=== PATIENT | male | born 1935 | race Asian ===

== ENCOUNTER 2016-10-31 17:20 | Inpatient (IN) | payer OTHER ==
[~2016-10-31] VITALS: Ht 165.1 cm; Wt 69.7 kg
[2016-10-31 17:31] LABS: BASOPHILS % (AUTO) 0.3 % (0.0-2.0); EOSINOPHILS % (AUTO) 1.2 % (1.0-6.0); HEMATOCRIT 31.3 % (41-53); LYMPHOCYTES # (AUTO) 2.4 K/uL (1.0-4.8); LYMPHOCYTES % (AUTO) 22.5 % (22.0-44.0); MEAN CORPUSCULAR HEMOGLOBIN 27.7 pg (26.0-34.0); MEAN CORPUSCULAR HGB CONC 31.8 G/dL (31.0-37.0); MEAN CORPUSCULAR VOLUME 87 fL (80-100); MONOCYTES # (AUTO) 0.6 K/uL (0.1-1.0); MONOCYTES % (AUTO) 6.1 % (2.0-9.0); NEUTROPHILS # (AUTO) 7.3 K/uL (1.8-7.7); NEUTROPHILS % (AUTO) 69.9 % (40.0-70.0); PLATELET COUNT (AUTO) 261 K/uL (150-450); RED BLOOD CELL COUNT(AUTO) 3.59 MIL/uL (4.50-5.90); RED CELL DISTRIBUTION WIDTH 13.4 % (11.5-14.5); WHITE BLOOD COUNT (AUTO) 10.5 K/uL (4.5-11.0)
[2016-10-31] MEDS ORDERED: METF500T4 PO (17:40)
[2016-10-31 17:42] LABS: INR 0.9 (0.9-1.1); PROTHROMBIN TIME 9.9 SEC (9.4-11.6)
[2016-10-31 17:47] LABS: ANION GAP 12 mmol/L (8-16); CARBON DIOXIDE 22 mmol/L (22-29); CHLORIDE 92 mmol/L (98-107); CREATININE 2.08 mg/dL (0.60-1.30); GLOMERULAR FILTR. RATE CALC 31 mL/min (>60); POTASSIUM 4.6 mmol/L (3.5-5.1); SODIUM SERUM 126 mmol/L (136-145); UREA NITROGEN, BLOOD 21 mg/dL (7-18)
[2016-10-31] MEDS ORDERED: LISI-661 PO (17:53)
[2016-10-31] MEDS ORDERED: SITA50 PO (17:53)
[2016-10-31] MEDS ORDERED: AMLO2.5T PO (17:53)
[2016-10-31] MEDS ORDERED: FINA5TAB41 PO (17:53)
[2016-10-31] MEDS ORDERED: ASPI-1093 PO (17:53)
[2016-10-31] MEDS ORDERED: LEVO50TA4 PO (17:53)
[2016-10-31] MEDS ORDERED: METO50 PO (17:53)
[2016-10-31] MEDS ORDERED: CHL25 PO (17:53)
[2016-10-31] MEDS ORDERED: ALLO100T PO (17:53)
[2016-10-31] MEDS ORDERED: ATOR20TA86 PO (17:53)
[2016-10-31] MEDS ORDERED: PREG75 PO (17:53)
[2016-10-31 17:54] LABS: ALANINE AMINOTRANSFERASE 43 U/L (12-78); ALBUMIN 2.9 g/dL (3.4-5.0); ASPARTATE AMINOTRANSFERASE 42 U/L (15-37); BILIRUBIN,TOTAL 0.3 mg/dL (0.1-1.0); CREATINE KINASE, TOTAL 55 U/L (39-308); TOTAL PROTEIN, SERUM 6.9 g/dL (6.4-8.2)
[2016-10-31] MEDS ORDERED: SODIUM CHLORIDE 0.9% 500 ML IV ONE ×2 (18:00→18:45)
[2016-10-31 19:02] LABS: ERYTHROCYTE SEDIMENTATION RATE 94 MM/HR (0-15)
[2016-10-31 19:05] LABS: THYROID STIMULATING HORMONE 0.36 uIU/mL (0.36-3.74)
[2016-10-31] MEDS ORDERED: DEXTROSE 50%-WATER 25 GM/50 ML SYRINGE IVP PRN (19:30)
[2016-10-31] MEDS ORDERED: 0.9% SODIUM CHLORIDE 10 ML SYRINGE IVP PRN (19:30)
[2016-10-31] MEDS ORDERED: ONDANSETRON HCL 4 MG/2 ML VIAL IVP PRN (19:30)
[2016-10-31] MEDS ORDERED: ACETAMINOPHEN 325 MG TABLET PO PRN (19:30)
[2016-10-31] MEDS ORDERED: INSULIN ASPART 100 UNITS/ML SQ PRN (19:30)
[2016-10-31 20:29] VITALS: BP 112/65
[2016-10-31 23:15] VITALS: BP 109/53
[2016-11-01 04:36] VITALS: BP 101/55
[2016-11-01] MEDS ORDERED: DEXTROSE 50%-WATER 25 GM/50 ML SYRINGE IVP PRN (06:15)
[2016-11-01 06:29] LABS: BASOPHILS % (AUTO) 0.3 % (0.0-2.0); EOSINOPHILS % (AUTO) 1.8 % (1.0-6.0); HEMATOCRIT 28.5 % (41-53); HEMOGLOBIN 9.2 g/dL (13.5-17.5); LYMPHOCYTES # (AUTO) 1.7 K/uL (1.0-4.8); LYMPHOCYTES % (AUTO) 28.4 % (22.0-44.0); MEAN CORPUSCULAR HEMOGLOBIN 27.9 pg (26.0-34.0); MEAN CORPUSCULAR HGB CONC 32.1 G/dL (31.0-37.0); MEAN CORPUSCULAR VOLUME 87 fL (80-100); MONOCYTES # (AUTO) 0.7 K/uL (0.1-1.0); MONOCYTES % (AUTO) 10.8 % (2.0-9.0); NEUTROPHILS # (AUTO) 3.5 K/uL (1.8-7.7); NEUTROPHILS % (AUTO) 58.7 % (40.0-70.0); PLATELET COUNT (AUTO) 223 K/uL (150-450); RED BLOOD CELL COUNT(AUTO) 3.28 MIL/uL (4.50-5.90); RED CELL DISTRIBUTION WIDTH 13.6 % (11.5-14.5)
[2016-11-01] MEDS: INSULIN ASPART 100 UNITS/ML SQ PRN ×3 (06:34→17:30)
[2016-11-01 07:04] LABS: ALBUMIN 2.5 g/dL (3.4-5.0); BILIRUBIN,TOTAL 0.2 mg/dL (0.1-1.0); CALCIUM, TOTAL 8.6 mg/dL (8.8-10.5); CHOL/HDL RATIO 3.2 (4.2-7.3); CREATININE 1.91 mg/dL (0.60-1.30); MAGNESIUM 1.5 mg/dL (1.80-2.40); PHOSPHORUS 3.1 mg/dL (2.5-4.9); TOTAL PROTEIN, SERUM 6.3 g/dL (6.4-8.2)
[2016-11-01 07:10] LABS: HEMOGLOBIN A1C 13.3 % (4.5-6.2)
[2016-11-01 08:02] LABS: APPEARANCE,URINE CLEAR (CLEAR); GLUCOSE, URINE (UA) NEGATIVE (NEGATIVE); KETONES,URINE NEGATIVE (NEGATIVE); LEUKOCYTE ESTERASE ,URINE NEGATIVE (NEGATIVE); OCCULT BLOOD,URINE NEGATIVE (NEGATIVE); PH,URINE 6.5 (5.0-8.0); PROTEIN,URINE NEGATIVE (NEGATIVE)
[2016-11-01 08:10] LABS: ADD UA MICROSCOPIC NO
[2016-11-01 08:13] VITALS: BP 116/58
[2016-11-01] MEDS: AmLODIPine BESYLATE 2.5 MG TABLET PO SCH (08:21)
[2016-11-01] MEDS: ALLOPURINOL 100 MG TABLET PO SCH (08:21)
[2016-11-01] MEDS: METOPROLOL TARTRATE 50 MG TABLET PO SCH (08:21)
[2016-11-01] MEDS: ASPIRIN 81 MG EC TABLET PO SCH (08:22)
[2016-11-01] MEDS: LEVOTHYROXINE SODIUM 50 MCG TABLET PO SCH (08:22)
[2016-11-01] MEDS: FINASTERIDE 5 MG TABLET PO SCH (08:22)
[2016-11-01] MEDS: PREGABALIN 75 MG CAPSULE PO SCH (08:22)
[2016-11-01] MEDS ORDERED: MAGNESIUM SULFATE 1 GM in DEXTROSE 5%-WATER 50 ML IV ONE (10:00)
[2016-11-01] MEDS ORDERED: SODIUM CHLORIDE 0.9% 250 ML IV ONE (10:21)
[2016-11-01 11:38] VITALS: BP 116/67
[2016-11-01 15:45] VITALS: BP 119/63
[2016-11-01] MEDS: INSULIN ASPART 100 UNITS/ML SQ SCH (17:30)
[2016-11-01 19:43] VITALS: BP 100/60
[2016-11-01] MEDS: ATORVASTATIN CALCIUM 20 MG TABLET PO SCH (20:23)
[2016-11-01] MEDS: INSULIN DETEMIR 100 UNITS/ML SQ SCH (20:27)
[2016-11-01] MEDS: PHENYLEPHRINE/PROMETH/CODEINE 5 ML ORAL.SYG PO PRN (22:01)
[2016-11-01 23:56] VITALS: BP 116/61
[2016-11-02 04:43] VITALS: BP 113/81
[2016-11-02] MEDS: PHENYLEPHRINE/PROMETH/CODEINE 5 ML ORAL.SYG PO PRN ×3 (05:38→20:24)
[2016-11-02] MEDS: INSULIN ASPART 100 UNITS/ML SQ SCH ×3 (06:47→17:54)
[2016-11-02] MEDS: INSULIN ASPART 100 UNITS/ML SQ PRN ×3 (06:47→20:32)
[2016-11-02 07:08] LABS: BASOPHILS % (AUTO) 0.2 % (0.0-2.0); EOSINOPHILS % (AUTO) 1.5 % (1.0-6.0); HEMATOCRIT 31.6 % (41-53); LYMPHOCYTES # (AUTO) 2.6 K/uL (1.0-4.8); LYMPHOCYTES % (AUTO) 35.2 % (22.0-44.0); MEAN CORPUSCULAR HEMOGLOBIN 27.9 pg (26.0-34.0); MEAN CORPUSCULAR HGB CONC 31.8 G/dL (31.0-37.0); MEAN CORPUSCULAR VOLUME 88 fL (80-100); MONOCYTES # (AUTO) 0.6 K/uL (0.1-1.0); MONOCYTES % (AUTO) 7.7 % (2.0-9.0); NEUTROPHILS # (AUTO) 4.1 K/uL (1.8-7.7); NEUTROPHILS % (AUTO) 55.4 % (40.0-70.0); PLATELET COUNT (AUTO) 260 K/uL (150-450); RED CELL DISTRIBUTION WIDTH 13.9 % (11.5-14.5); WHITE BLOOD COUNT (AUTO) 7.5 K/uL (4.5-11.0)
[2016-11-02 07:47] VITALS: BP 106/55
[2016-11-02 08:04] LABS: CALCIUM, TOTAL 8.8 mg/dL (8.8-10.5); CREATININE 1.69 mg/dL (0.60-1.30); MAGNESIUM 1.6 mg/dL (1.80-2.40)
[2016-11-02] MEDS: PANTOPRAZOLE SODIUM 40 MG DR TABLET PO SCH (08:25)
[2016-11-02] MEDS: METOPROLOL TARTRATE 50 MG TABLET PO SCH (08:25)
[2016-11-02] MEDS: ASPIRIN 81 MG EC TABLET PO SCH (08:25)
[2016-11-02] MEDS: AmLODIPine BESYLATE 2.5 MG TABLET PO SCH (08:25)
[2016-11-02] MEDS: PREGABALIN 75 MG CAPSULE PO SCH (08:25)
[2016-11-02] MEDS: LEVOTHYROXINE SODIUM 50 MCG TABLET PO SCH (08:25)
[2016-11-02] MEDS: FINASTERIDE 5 MG TABLET PO SCH (08:25)
[2016-11-02] MEDS: ALLOPURINOL 100 MG TABLET PO SCH (08:25)
[2016-11-02 08:27] LABS: GLUCOSE COMMENT 1 Received Meds; GLUCOSE,POINT OF CARE 173 MG/DL (70-110)
[2016-11-02 08:56] LABS: GLUCOSE COMMENT 1 Received Meds; GLUCOSE,POINT OF CARE 137 MG/DL (70-110)
[2016-11-02 10:46] VITALS: BP 94/63
[2016-11-02] MEDS ORDERED: MAGNESIUM SULFATE 3 GM in DEXTROSE 5%-WATER 100 ML IV ONE (12:30)
[2016-11-02 15:05] VITALS: BP 99/50
[2016-11-02 19:37] VITALS: BP 97/58
[2016-11-02] MEDS: ATORVASTATIN CALCIUM 20 MG TABLET PO SCH (20:24)
[2016-11-02] MEDS: INSULIN DETEMIR 100 UNITS/ML SQ SCH (20:32)
[2016-11-02 23:47] VITALS: BP 94/58
[2016-11-03 04:16] VITALS: BP 105/53
[2016-11-03] MEDS: PHENYLEPHRINE/PROMETH/CODEINE 5 ML ORAL.SYG PO PRN (06:12)
[2016-11-03] MEDS: INSULIN ASPART 100 UNITS/ML SQ PRN ×2 (06:17→11:31)
[2016-11-03] MEDS: INSULIN ASPART 100 UNITS/ML SQ SCH ×2 (06:17→11:30)
[2016-11-03] MEDS ORDERED: LEVOTHYROXINE SODIUM 50 MCG TABLET PO SCH (06:30)
[2016-11-03 06:44] LABS: BASOPHILS % (AUTO) 0.3 % (0.0-2.0); EOSINOPHILS % (AUTO) 1.4 % (1.0-6.0); HEMATOCRIT 30.3 % (41-53); HEMOGLOBIN 9.7 g/dL (13.5-17.5); LYMPHOCYTES # (AUTO) 2.3 K/uL (1.0-4.8); MEAN CORPUSCULAR HEMOGLOBIN 28.1 pg (26.0-34.0); MEAN CORPUSCULAR HGB CONC 31.9 G/dL (31.0-37.0); MEAN CORPUSCULAR VOLUME 88 fL (80-100); MONOCYTES # (AUTO) 0.5 K/uL (0.1-1.0); MONOCYTES % (AUTO) 6.9 % (2.0-9.0); NEUTROPHILS # (AUTO) 4.4 K/uL (1.8-7.7); NEUTROPHILS % (AUTO) 60.4 % (40.0-70.0); PLATELET COUNT (AUTO) 255 K/uL (150-450); RED BLOOD CELL COUNT(AUTO) 3.44 MIL/uL (4.50-5.90); WHITE BLOOD COUNT (AUTO) 7.3 K/uL (4.5-11.0)
[2016-11-03 07:02] LABS: CALCIUM, TOTAL 8.6 mg/dL (8.8-10.5); CREATININE 1.7 mg/dL (0.60-1.30)
[2016-11-03 07:29] VITALS: BP 107/54
[2016-11-03] MEDS: PANTOPRAZOLE SODIUM 40 MG DR TABLET PO SCH (08:43)
[2016-11-03] MEDS: ALLOPURINOL 100 MG TABLET PO SCH (08:43)
[2016-11-03] MEDS: PREGABALIN 75 MG CAPSULE PO SCH (08:43)
[2016-11-03] MEDS: ASPIRIN 81 MG EC TABLET PO SCH (08:43)
[2016-11-03] MEDS: FINASTERIDE 5 MG TABLET PO SCH (08:43)
[2016-11-03] MEDS: METOPROLOL TARTRATE 50 MG TABLET PO SCH (08:43)
[2016-11-03] MEDS: AmLODIPine BESYLATE 2.5 MG TABLET PO SCH (08:45)
[2016-11-03 11:31] VITALS: BP 104/57
[2016-11-03] MEDS ORDERED: INSU100V12 SQ (14:10)
[2016-11-03] MEDS ORDERED: INSNOV SQ (14:12)
[2016-11-04 13:37] LABS: GLUCOSE COMMENT 1 Received Meds; GLUCOSE,POINT OF CARE 216 MG/DL (70-110)
[2016-11-04 13:37] LABS: GLUCOSE COMMENT 1 Received Meds; GLUCOSE,POINT OF CARE 180 MG/DL (70-110)
[2016-11-04 13:37] LABS: GLUCOSE COMMENT 1 Received Meds; GLUCOSE,POINT OF CARE 144 MG/DL (70-110)
[2016-11-04 13:37] LABS: GLUCOSE COMMENT 1 Received Meds; GLUCOSE,POINT OF CARE 170 MG/DL (70-110)
[2016-11-04 13:38] LABS: GLUCOSE COMMENT 1 Received Meds; GLUCOSE,POINT OF CARE 183 MG/DL (70-110)
[2016-11-04 13:38] LABS: GLUCOSE COMMENT 1 Received Meds; GLUCOSE,POINT OF CARE 188 MG/DL (70-110)
[2016-11-04 13:38] LABS: GLUCOSE,POINT OF CARE 130 MG/DL (70-110)
[2016-11-04 13:38] LABS: GLUCOSE COMMENT 1 Received Meds; GLUCOSE,POINT OF CARE 258 MG/DL (70-110)
[2016-11-04 13:42] LABS: GLUCOSE COMMENT 1 Received Meds; GLUCOSE,POINT OF CARE 170 MG/DL (70-110)
== END 2016-11-03 14:45 | disposition home or self-care (01) | DRG 682 ==
LOC: EMS 17:24 → 5N 18:32 → EEVIPCON 18:32
PROVIDERS: ADMIT Family Medicine; ATTEND Family Medicine
DX: N17.0 Acute kidney failure with tubular necrosis (principal); G93.41 Metabolic encephalopathy; E87.1 Hypo-osmolality and hyponatremia; C90.00 Multiple myeloma not having achieved remission; E11.22 Type 2 diabetes mellitus with diabetic chronic kidney disease; N18.9 Chronic kidney disease, unspecified; I12.9 Hypertensive chronic kidney disease with stage 1 through stage 4 chronic kidney disease, or unspecified chronic kidney disease; E03.9 Hypothyroidism, unspecified; E11.65 Type 2 diabetes mellitus with hyperglycemia; E11.21 Type 2 diabetes mellitus with diabetic nephropathy; Z86.73 Personal history of transient ischemic attack (TIA), and cerebral infarction without residual deficits; Z79.4 Long term (current) use of insulin; Z79.82 Long term (current) use of aspirin; Z79.899 Other long term (current) drug therapy
CPT/HCPCS: 76770; 82533; 82570; 82962; 83036; 83735; 83935; 84100; 84300; 84443; 85651; 87081; 92523; 93005; 93306; 93880; 96360; 97161; 97167; 97530; 99291; J1815; J2370; J3475; J7040; J7050; J7060

== ENCOUNTER → 2017-02-14 | Outpatient (CLI) | payer OTHER ==
[~2017-02-14] MED LIST: ALLO100T PO; AMLO2.5T PO; ASPI-1093 PO; ATOR20TA86 PO; CHL25 PO; FINA5TAB41 PO; INSNOV SQ; INSU100V12 SQ; LEVO50TA4 PO; METO50 PO; PREG75 PO; SITA50 PO
== END | disposition home or self-care (01) ==
LOC: RADPV 12:55
PROVIDERS: ATTEND Internal Medicine Nephrology
DX: M79.89 Other specified soft tissue disorders (principal)
CPT/HCPCS: 93970

== ENCOUNTER 2019-07-06 19:50 | Inpatient (IN) | payer MEDICARE, OTHER ==
[~2019-07-06] VITALS: Ht 165.1 cm; Wt 69.8 kg
[~2019-07-06 19:50] MED LIST changes: -AMLO2.5T PO; +AMLO2.5T4 PO; -ASPI-1093 PO; +ASPI-1111 PO; +FINA-27 PO; -FINA5TAB41 PO
[2019-07-07 01:22] LABS: GLUCOSE,POINT OF CARE 144 MG/DL (70-110)
[2019-07-07] MEDS ORDERED: SODIUM CHLORIDE 0.9% 500 ML IV ONE (01:45)
[2019-07-07] MEDS ORDERED: ALBUTEROL SULFATE 2.5 MG/0.5 ML NEB SOLUTION NEB ONE ×2 (01:45→06:30)
[2019-07-07] MEDS ORDERED: 0.9% SODIUM CHLORIDE 5 ML NEB SOLUTION NEB ONE (02:05)
[2019-07-07 02:19] LABS: BASOPHILS % (AUTO) 0.3 % (0.0-2.0); EOSINOPHILS % (AUTO) 0.5 % (1.0-6.0); HEMOGLOBIN 10.5 g/dL (13.5-17.5); LYMPHOCYTES # (AUTO) 1.4 K/uL (1.0-4.8); LYMPHOCYTES % (AUTO) 30.9 % (22.0-44.0); MEAN CORPUSCULAR HEMOGLOBIN 30.7 pg (26.0-34.0); MEAN CORPUSCULAR VOLUME 93 fL (80-100); MONOCYTES # (AUTO) 0.5 K/uL (0.1-1.0); MONOCYTES % (AUTO) 11.7 % (2.0-9.0); NEUTROPHILS # (AUTO) 2.6 K/uL (1.8-7.7); NEUTROPHILS % (AUTO) 56.6 % (40.0-70.0); PLATELET COUNT (AUTO) 61 K/uL (150-450); RED BLOOD CELL COUNT(AUTO) 3.44 MIL/uL (4.50-5.90); RED CELL DISTRIBUTION WIDTH 18.5 % (11.5-14.5)
[2019-07-07 02:37] LABS: PLATELET MORPHOLOGY COMMENT LARGE PLTS PRESENT
[2019-07-07 02:40] LABS: ALBUMIN 2.9 g/dL (3.4-5.0); BILIRUBIN,TOTAL 0.4 mg/dL (0.1-1.0); CALCIUM, TOTAL 8.8 mg/dL (8.8-10.5); POTASSIUM 3.9 mmol/L (3.5-5.1); TOTAL PROTEIN, SERUM 7.9 g/dL (6.4-8.2)
[2019-07-07 03:11] LABS: INFLUENZA TYPE A NEGATIVE FOR TYPE A (NEGATIVE); INFLUENZA TYPE B NEGATIVE FOR TYPE B (NEGATIVE)
[2019-07-07 03:33] LABS: APPEARANCE,URINE CLEAR (CLEAR); BILIRUBIN,URINE NEGATIVE (NEGATIVE); GLUCOSE, URINE (UA) 250 mg/dL (NEGATIVE); KETONES,URINE NEGATIVE (NEGATIVE); LEUKOCYTE ESTERASE ,URINE NEGATIVE (NEGATIVE); NITRATE,URINE NEGATIVE (NEGATIVE); OCCULT BLOOD,URINE NEGATIVE (NEGATIVE); PH,URINE 5.5 (5.0-8.0); PROTEIN,URINE POS 1+ (NEGATIVE); UROBILINOGEN,URINE 0.2 mg/dL (<=1.0)
[2019-07-07 03:44] LABS: BACTERIA,URINE Rare /HPF (None Seen); RBC,URINE 0-2 /HPF (0-2); WBC,URINE 0-2 /HPF (0-5)
[2019-07-07 03:45] LABS: COARSE GRANULAR CASTS,URINE 0-2 /LPF (None Seen)
[2019-07-07] MEDS ORDERED: CefTRIAXone 1 GM/DEXTROSE 50 ML IV ONE (04:00)
[2019-07-07] MEDS ORDERED: PredniSONE 20 MG TABLET PO ONE (04:00)
[2019-07-07] MEDS ORDERED: AZITHROMYCIN 250 MG TABLET PO ONE (04:00)
[2019-07-07] MEDS ORDERED: 0.9% SODIUM CHLORIDE 10 ML SYRINGE IVP PRN (04:15)
[2019-07-07] MEDS ORDERED: ACETAMINOPHEN 325 MG TABLET PO PRN ×2 (04:15→08:15)
[2019-07-07] MEDS ORDERED: DEXTROSE 50%-WATER 25 GM/50 ML SYRINGE IVP PRN (08:15)
[2019-07-07] MEDS ORDERED: SODIUM CHLORIDE 0.45% 1,000 ML IV ONE (08:30)
[2019-07-07] MEDS: FAMOTIDINE 20 MG TABLET PO SCH (08:39)
[2019-07-07] MEDS: METOPROLOL TARTRATE 25 MG TABLET PO SCH ×2 (08:39→20:59)
[2019-07-07] MEDS: ASPIRIN 81 MG CHEWABLE TABLET PO SCH (08:39)
[2019-07-07] MEDS: DOCUSATE SODIUM 100 MG CAPSULE PO SCH ×2 (08:42→20:59)
[2019-07-07] MEDS: INSULIN LISPRO 100 UNITS/ML SQ PRN ×4 (08:48→21:07)
[2019-07-07 08:57] LABS: GLUCOSE,POINT OF CARE 301 MG/DL (70-110)
[2019-07-07] MEDS ORDERED: PREGABALIN 75 MG CAPSULE PO SCH (09:00)
[2019-07-07] MEDS: ATORVASTATIN CALCIUM 20 MG TABLET PO SCH (09:04)
[2019-07-07 12:05] LABS: GLUCOSE,POINT OF CARE 250 MG/DL (70-110)
[2019-07-07] MEDS: HEPARIN SODIUM,PORCINE 5,000 UNITS/ML VIAL SQ SCH ×2 (15:29→23:43)
[2019-07-07] MEDS ORDERED: FURO20 PO (16:09)
[2019-07-07 16:25] VITALS: BP 147/77
[2019-07-07 18:05] LABS: GLUCOMETER DEV NAME(LOC) 5S.1; GLUCOSE,POINT OF CARE 216 MG/DL (70-110)
[2019-07-07 19:54] VITALS: BP 140/70
[2019-07-07] MEDS: PREGABALIN 75 MG CAPSULE PO SCH (22:20)
[2019-07-07 23:50] LABS: GLUCOMETER DEV NAME(LOC) 5N.2; GLUCOSE,POINT OF CARE 217 MG/DL (70-110)
[2019-07-08 00:30] VITALS: BP 129/79
[2019-07-08] MEDS: CefTRIAXone 1 GM/DEXTROSE 50 ML IV SCH (03:41)
[2019-07-08] MEDS: AZITHROMYCIN 500 MG/NS 250 ML IV SCH (04:16)
[2019-07-08 04:39] VITALS: BP 116/58
[2019-07-08 07:06] LABS: GLUCOMETER DEV NAME(LOC) 5N.1; GLUCOSE,POINT OF CARE 118 MG/DL (70-110)
[2019-07-08 07:08] LABS: CALCIUM, TOTAL 8.5 mg/dL (8.8-10.5); CREATININE 1.77 mg/dL (0.60-1.30); POTASSIUM 3.8 mmol/L (3.5-5.1)
[2019-07-08 07:26] VITALS: BP 118/66
[2019-07-08] MEDS: HEPARIN SODIUM,PORCINE 5,000 UNITS/ML VIAL SQ SCH (08:00)
[2019-07-08] MEDS: FAMOTIDINE 20 MG TABLET PO SCH (08:51)
[2019-07-08] MEDS: METOPROLOL TARTRATE 25 MG TABLET PO SCH ×2 (08:51→20:39)
[2019-07-08] MEDS: PREGABALIN 75 MG CAPSULE PO SCH ×2 (08:51→20:39)
[2019-07-08] MEDS: ASPIRIN 81 MG CHEWABLE TABLET PO SCH (08:52)
[2019-07-08] MEDS: DOCUSATE SODIUM 100 MG CAPSULE PO SCH ×2 (08:55→20:21)
[2019-07-08] MEDS: ATORVASTATIN CALCIUM 20 MG TABLET PO SCH ×2 (08:55→20:38)
[2019-07-08] MEDS ORDERED: *NON-FORMULARY MED [ENTER DRUG, DOSE, FREQ IN COMMENTS] CLINICAL ONE (09:00)
[2019-07-08] MEDS ORDERED: NINLARO PO SCH (09:00)
[2019-07-08] MEDS ORDERED: PREGABALIN 75 MG CAPSULE PO SCH (09:00)
[2019-07-08] MEDS ORDERED: SODIUM CHLORIDE 0.9% 1,000 ML IV ONE (10:00)
[2019-07-08 11:35] VITALS: BP 124/70
[2019-07-08 11:45] LABS: GLUCOMETER DEV NAME(LOC) 5N.1; GLUCOSE,POINT OF CARE 157 MG/DL (70-110)
[2019-07-08] MEDS: INSULIN LISPRO 100 UNITS/ML SQ PRN ×3 (12:34→20:54)
[2019-07-08 15:25] VITALS: BP 122/57
[2019-07-08 21:36] VITALS: BP 132/67
[2019-07-08 22:05] LABS: GLUCOMETER DEV NAME(LOC) 5N.1; GLUCOSE,POINT OF CARE 226 MG/DL (70-110)
[2019-07-08] MEDS ORDERED: GuaiFENesin/D-METHORPHAN [SUGAR-FREE] 200-20MG/10 ML SYRUP UDCUP PO PRN (22:45)
[2019-07-08] MEDS ORDERED: 0.9% SODIUM CHLORIDE 5 ML NEB SOLUTION NEB ONE (23:01)
[2019-07-08] MEDS: ALBUTEROL SULFATE 2.5 MG/0.5 ML NEB SOLUTION NEB PRN (23:32)
[2019-07-09 00:20] VITALS: BP 128/66
[2019-07-09] MEDS: CefTRIAXone 1 GM/DEXTROSE 50 ML IV SCH (03:02)
[2019-07-09] MEDS: AZITHROMYCIN 500 MG/NS 250 ML IV SCH (03:40)
[2019-07-09 04:49] VITALS: BP 116/59
[2019-07-09 06:56] LABS: BASOPHILS % (AUTO) 0.3 % (0.0-2.0); EOSINOPHILS % (AUTO) 1.4 % (1.0-6.0); HEMOGLOBIN 9.7 g/dL (13.5-17.5); LYMPHOCYTES # (AUTO) 1.2 K/uL (1.0-4.8); LYMPHOCYTES % (AUTO) 28.8 % (22.0-44.0); MEAN CORPUSCULAR HEMOGLOBIN 31.3 pg (26.0-34.0); MEAN CORPUSCULAR HGB CONC 33.5 G/dL (31.0-37.0); MEAN CORPUSCULAR VOLUME 94 fL (80-100); MONOCYTES # (AUTO) 0.4 K/uL (0.1-1.0); MONOCYTES % (AUTO) 8.6 % (2.0-9.0); NEUTROPHILS # (AUTO) 2.6 K/uL (1.8-7.7); NEUTROPHILS % (AUTO) 60.9 % (40.0-70.0); PLATELET COUNT (AUTO) 71 K/uL (150-450); RED BLOOD CELL COUNT(AUTO) 3.11 MIL/uL (4.50-5.90); RED CELL DISTRIBUTION WIDTH 18.7 % (11.5-14.5)
[2019-07-09 07:01] LABS: CALCIUM, TOTAL 8.5 mg/dL (8.8-10.5); CREATININE 1.76 mg/dL (0.60-1.30); POTASSIUM 3.9 mmol/L (3.5-5.1)
[2019-07-09 07:03] LABS: PLATELET MORPHOLOGY COMMENT LARGE PLTS PRESENT
[2019-07-09 07:30] VITALS: BP 122/67
[2019-07-09] MEDS: DOCUSATE SODIUM 100 MG CAPSULE PO SCH ×3 (09:00→20:22)
[2019-07-09] MEDS: PREGABALIN 75 MG CAPSULE PO SCH ×2 (09:22→20:18)
[2019-07-09] MEDS: METOPROLOL TARTRATE 25 MG TABLET PO SCH ×2 (09:22→20:19)
[2019-07-09] MEDS: FAMOTIDINE 20 MG TABLET PO SCH (09:22)
[2019-07-09] MEDS: ASPIRIN 81 MG CHEWABLE TABLET PO SCH (09:22)
[2019-07-09] MEDS: ALBUTEROL SULFATE 2.5 MG/0.5 ML NEB SOLUTION NEB PRN ×3 (09:30→22:38)
[2019-07-09] MEDS ORDERED: AZIT250T9 PO (11:17)
[2019-07-09] MEDS ORDERED: ALBU8HFA IH (11:17)
[2019-07-09 12:10] VITALS: BP 118/71
[2019-07-09] MEDS: INSULIN LISPRO 100 UNITS/ML SQ PRN ×3 (12:34→20:33)
[2019-07-09 16:20] VITALS: BP_SYST 142; BP_SYST 97; BP_DIAS 68; BP_DIAS 78
[2019-07-09] MEDS ORDERED: MethylPREDNISolone SOD SUCC 125 MG/2 ML VIAL IVP ONE (17:00)
[2019-07-09 19:25] VITALS: BP 149/77
[2019-07-09] MEDS ORDERED: 0.9% SODIUM CHLORIDE 5 ML NEB SOLUTION NEB ONE ×2 (19:47→22:36)
[2019-07-09 20:01] LABS: GLUCOMETER DEV NAME(LOC) 5N.1; GLUCOSE,POINT OF CARE 215 MG/DL (70-110)
[2019-07-09 20:06] LABS: GLUCOMETER DEV NAME(LOC) 5N.2; GLUCOSE,POINT OF CARE 130 MG/DL (70-110)
[2019-07-09 20:06] LABS: GLUCOMETER DEV NAME(LOC) 5N.2; GLUCOSE,POINT OF CARE 193 MG/DL (70-110)
[2019-07-09 20:07] LABS: GLUCOMETER DEV NAME(LOC) 5N.2; GLUCOSE,POINT OF CARE 208 MG/DL (70-110)
[2019-07-09] MEDS: ATORVASTATIN CALCIUM 20 MG TABLET PO SCH (20:18)
[2019-07-10 00:25] VITALS: BP 129/66
[2019-07-10 02:21] LABS: GLUCOMETER DEV NAME(LOC) 5N.1; GLUCOSE,POINT OF CARE 227 MG/DL (70-110)
[2019-07-10] MEDS: CefTRIAXone 1 GM/DEXTROSE 50 ML IV SCH (02:56)
[2019-07-10] MEDS: AZITHROMYCIN 500 MG/NS 250 ML IV SCH (03:31)
[2019-07-10 04:50] VITALS: BP 137/74
[2019-07-10] MEDS: INSULIN LISPRO 100 UNITS/ML SQ PRN ×2 (06:28→12:03)
[2019-07-10 06:52] LABS: GLUCOMETER DEV NAME(LOC) 5N.2; GLUCOSE,POINT OF CARE 280 MG/DL (70-110)
[2019-07-10 07:15] VITALS: BP 132/65
[2019-07-10 08:17] LABS: CALCIUM, TOTAL 8.5 mg/dL (8.8-10.5); CREATININE 1.93 mg/dL (0.60-1.30); POTASSIUM 4.8 mmol/L (3.5-5.1)
[2019-07-10] MEDS: PREGABALIN 75 MG CAPSULE PO SCH (08:23)
[2019-07-10] MEDS: METOPROLOL TARTRATE 25 MG TABLET PO SCH (08:23)
[2019-07-10] MEDS: FAMOTIDINE 20 MG TABLET PO SCH (08:23)
[2019-07-10] MEDS: ASPIRIN 81 MG CHEWABLE TABLET PO SCH (08:24)
[2019-07-10] MEDS: DOCUSATE SODIUM 100 MG CAPSULE PO SCH (08:29)
[2019-07-10 11:48] VITALS: BP 147/70
[2019-07-10] MEDS ORDERED: AZIT250T9 PO (12:34)
[2019-07-10] MEDS ORDERED: IPRA3AMP24 IH (12:35)
[2019-07-10] MEDS ORDERED: PRED20 PO (12:37)
[2019-07-10] MEDS ORDERED: PRED10 PO (12:37)
[2019-07-10 18:17] LABS: GLUCOMETER DEV NAME(LOC) 5N.2; GLUCOSE,POINT OF CARE 276 MG/DL (70-110)
== END 2019-07-10 13:00 | disposition home or self-care (01) | DRG 682 ==
LOC: EMS 19:52 → 5N 07-07 15:48
PROVIDERS: ADMIT Internal Medicine; ATTEND Internal Medicine
DX: N17.9 Acute kidney failure, unspecified (principal); J18.9 Pneumonia, unspecified organism; E11.40 Type 2 diabetes mellitus with diabetic neuropathy, unspecified; E11.22 Type 2 diabetes mellitus with diabetic chronic kidney disease; N18.3 Chronic kidney disease, stage 3 (moderate); M19.90 Unspecified osteoarthritis, unspecified site; J45.909 Unspecified asthma, uncomplicated; Z79.899 Other long term (current) drug therapy; Z85.79 Personal history of other malignant neoplasms of lymphoid, hematopoietic and related tissues; Z79.82 Long term (current) use of aspirin; Z79.4 Long term (current) use of insulin
CPT/HCPCS: 83605; 87040; 87804; 93005; 94060; 94640; J0456; J0696; J1644; J1815; J2930; J7030; J7040